=== PATIENT | female | born 1970 | race Caucasian/White ===

== ENCOUNTER 2017-05-21 07:14 | Emergency (ER) | payer MEDICAID ==
[~2017-05-21] VITALS: Ht 167.6 cm; Wt 80.8 kg
[~2017-05-21 07:14] MED LIST: DICL50TA3 PO; GABA250S PO; GLIP5 PO; LANTUS2P SC; LIPI10TA PO
[2017-05-21 07:18] VITALS: BP 163/81; PULSE 88; RESP 16; TEMP 98.8; O2SAT 96
[2017-05-21] MEDS ORDERED: PHENERGAN W CODEIN PO (07:40)
[2017-05-21] MEDS ORDERED: ZITHTAB PO (07:40)
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
== END 2017-05-21 07:50 | disposition home or self-care (01) ==
LOC: PHED 07:14
DX: J40 Bronchitis, not specified as acute or chronic (principal); E11.9 Type 2 diabetes mellitus without complications; I10 Essential (primary) hypertension; E78.00 Pure hypercholesterolemia, unspecified; F41.9 Anxiety disorder, unspecified; F32.9 Major depressive disorder, single episode, unspecified
CPT/HCPCS: 99283